=== PATIENT | female | born 1985 | race American Indian/Alaskan Native ===

== ENCOUNTER 2018-06-04 13:45 | Emergency (ER) | payer MEDICAID ==
--- NOTE | 2018-06-04 13:49 | Emergency Department Report ---
Blank Doc - Documentation Documentation: This is a 32-year-old female that presents with vaginal bleeding and pelvic cramping. STated is about 6 weeks . This initial assessment/diagnostic orders/clinical plan/treatment(s) is/are subject to change based on patient's health status, clinical progression and re- assessment by fellow clinical providers in the ED. Further treatment and workup at subsequent clinical providers discretion. Patient/guardians urged not to elope from the ED as their condition may be serious if not clinically assessed and managed. Initial orders include: 1- Patient sent to [facility] for further evaluation and treatment 2- labs 3- UA 4- US OB
[2018-06-04 13:51] VITALS: BP 143/94
[2018-06-04 14:18] LABS: Bilirubin,Urine NEG (Negative); Blood,Urine LG (Negative); Color,Urine Yellow (Yellow); Mucus,Urine FEW /HPF; Urobilinogen,Urine < 2.0 mg/dL (<2.0)
[2018-06-04 14:24] LABS: Basophils % (Auto) 0.4 % (0.0-1.8); Eosinophils # (Auto) 0.1 K/mm3 (0.0-0.4); Eosinophils % (Auto) 1.3 % (0.0-4.3); Hematocrit 30.9 % (30.3-42.9); Hemoglobin 10.3 gm/dl (10.1-14.3); Lymphocytes # (Auto) 2.1 K/mm3 (1.2-5.4); Lymphocytes % (Auto) 25.4 % (13.4-35.0); Mean Corpuscular HGB Conc 34 % (30-34); Mean Corpuscular Volume 93 fl (79-97); Monocytes # (Auto) 0.6 K/mm3 (0.0-0.8); Monocytes % (Auto) 7.1 % (0.0-7.3); Platelet Count 321 K/mm3 (140-440); Red Blood Count 3.33 M/mm3 (3.65-5.03); Red Cell Distribution Width 13.3 % (13.2-15.2)
--- NOTE | 2018-06-04 16:27 | Ultrasound Report ---
PROCEDURE: Transabdominal pelvic ultrasound. TECHNIQUE: Real-time transabdominal sonography in multiple planes of pelvis was performed with image documentation. HISTORY: Pelvic pain with vaginal bleeding. COMPARISONS: None. FINDINGS: Image quality is decreased because the patient's bladder was not fully distended. The uterus measures 8.4 cm x 3.6 cm x 4.5 cm. The myometrium appears uniform. The endometrial echo complex measures 6.5 mm. There is no evidence of an intrauterine gestational sac. Correlation with a quantitative beta hCG value is recommended. Both ovaries appear normal in size. There is no free fluid in the cul-de-sac. IMPRESSION: Normal study. This document is electronically signed by Renaldo Huff MD., June 04 2018 04:25:17 PM ET
--- NOTE | 2018-06-04 16:32 | Ultrasound Report ---
PROCEDURE: Transvaginal pelvic ultrasound. TECHNIQUE: Real-time transvaginal sonography in multiple planes of the pelvis was performed with jannette ge documentation. HISTORY: Pelvic pain with vaginal bleeding. COMPARISONS: None. FINDINGS: The myometrium appears uniform. There are no focal uterine masses. There is some slight thickening of the endometrial echo complex within the cervix. There is a very tiny collection of fluid within the cervix. This is of uncertain significance. The possibility of an aborting gestational sac is possible . Correlation with a quantitative beta hCG value is recommended. Both ovaries appear normal in size. There is normal color flow in both ovaries. There are 2 small complex cysts in the right ovary and on e small complex cyst in the left ovary. There is a tiny amount of free fluid in the cul-de-sac. IMPRESSION: Tiny focal fluid collection within the endocervical canal as described above. This document is electronically signed by Renaldo Huff MD., June 04 2018 04:30:51 PM ET
--- NOTE | 2018-06-04 16:42 | Emergency Department Report ---
ED Female HPI - General Chief complaint: Vaginal Bleeding Stated complaint: 6WKS /BLEEDING CRAMPING Time Seen by Provider: 06/04/18 13:48 Source: patient Mode of arrival: Ambulatory Limitations: No Limitations - History of Present Illness Initial comments: Patient is 32 years old female, 2 para 0. Patient presented to the ER complaining of vaginal bleeding and pelvic pain for the last 3 days after having sex. Patient has care was Dr. Reymundo Arellano. She was stated that she had an ultrasound done and she was told that she is 6 weeks . Patient denied any nausea or vomiting. No chest pain or shortness of breath. MD Complaint: vaginal bleeding, pelvic pain - Related Data Allergies Allergy/AdvReac Type Severity Reaction Status Date / Time sulfamethoxazole Allergy Swelling Verified 06/04/18 13:46 [From Bactrim] trimethoprim [From Bactrim] Allergy Swelling Verified 06/04/18 13:46 ED Review of Systems ROS: Stated complaint: 6WKS /BLEEDING CRAMPING Other details as noted in HPI Comment: All other systems reviewed and negative Constitutional: denies: chills, fever Cardiovascular: denies: chest pain, palpitations Gastrointestinal: abdominal pain. denies: nausea, vomiting Neurological: denies: headache, weakness ED Past Medical Hx - Past Medical History Previous Medical History?: No - Surgical History Past Surgical History?: No - Social History Smoking Status: Never Smoker Substance Use Type: None ED Physical Exam - General Limitations: No Limitations General appearance: alert, in no apparent distress - Head Head exam: Present: atraumatic, normocephalic, normal inspection - Eye Eye exam: Present: normal appearance - ENT ENT exam: Present: normal exam, normal orophraynx, mucous membranes moist - Neck Neck exam: Present: normal inspection, full ROM. Absent: tenderness, meningismus, lymphadenopathy, thyromegaly - Respiratory Respiratory exam: Present: normal lung sounds bilaterally - Cardiovascular Cardiovascular Exam: Present: regular rate, normal rhythm, normal heart sounds - GI/Abdominal GI/Abdominal exam: Present: soft, normal bowel sounds. Absent: distended, tenderness, guarding, rebound, rigid - Extremities Exam Extremities exam: Present: normal inspection, full ROM - Back Exam Back exam: Present: normal inspection, full ROM. Absent: tenderness, CVA tenderness (R), CVA tenderness (L) - Neurological Exam Neurological exam: Present: alert, oriented X3, CN II-XII intact, normal gait, reflexes normal - Skin Skin exam: Present: warm, intact, normal color ED Course Vital Signs 06/04/18 13:49 Temperature 99.3 F Pulse Rate 84 Respiratory 18 Rate Blood Pressure 143/94 O2 Sat by Pulse 98 Oximetry ED Medical Decision Making - Lab Data Result diagrams: 06/04/18 13:57 - Radiology Data Radiology results: report reviewed Referring Physician: JULIUS BUI Patient Name: ALYSSA HILLS Date of : 1985 Sex: Female Report Date: 2018-06-04 Report Status: Finalized Findings [facility] [address] [place] [address] Ultrasound Report Signed Patient: ALYSSA HILLS MR#: [id number] : 1985 Acct:[id number] Age/Sex: 32 / F ADM Date: 06/04/18 Loc: ED Attending Dr: Ordering Physician: JULIUS BUI NP Date of Service: 06/04/18 Procedure(s): US OB transvaginal Accession Number(s): [id number] cc: JULIUS BUI NP PROCEDURE: Transvaginal pelvic ultrasound. TECHNIQUE: Real-time transvaginal sonography in multiple planes of the pelvis was performed with image documentation. HISTORY: Pelvic pain with vaginal bleeding. COMPARISONS: None. FINDINGS: The myometrium appears uniform. There are no focal uterine masses. There is some slight thickening of the endometrial echo complex within the cervix. There is a very tiny collection of fluid within the cervix. This is of uncertain significance. The possibility of an aborting gestational sac is possible. Correlation with a quantitative beta hCG value is recommended. Both ovaries appear normal in size. There is normal color flow in both ovaries. There are 2 small complex cysts in the right ovary and one small complex cyst in the left ovary. There is a tiny amount of free fluid in the cul-de-sac. IMPRESSION: Tiny focal fluid collection within the endocervical canal as described above. This document is electronically signed by Renaldo Damian MD., June 04 2018 04:30:51 PM ET Transcribed By: MRM Dictated By: RENALDO DAMIAN MD Electronically Authenticated By: RENALDO DAMIAN MD Signed Date/Time: 06/04/18 1632 DD/ 1604 TD/TT: 06/04/18 1604 - Medical Decision Making I advised the patient to follow-up with Dr. Reymundo Arellano in the next 2-3 days for a repeat BETA hCG and possible ultrasound. Patient stated that she has an appointment with Dr. Reymundo Arellano on . I also advised her to return to the ER if symptoms have not improved. Critical care attestation.: If time is entered above; I have spent that time in minutes in the direct care of this critically ill patient, excluding procedure time. ED Disposition Clinical Impression: Abdominal pain affecting , Miscarriage Disposition: - TO HOME OR SELFCARE Is pt being admited?: No Condition: Stable Instructions: Spontaneous Miscarriage (ED) Referrals: REYMUNDO ARELLANO MD [Primary Care Provider] - 3-5 Days
== END 2018-06-04 16:48 | disposition home or self-care (01) ==
LOC: ED 13:45
DX: O20.0 Threatened abortion (principal); Z3A.01 Less than 8 weeks gestation of pregnancy; Z88.2 Allergy status to sulfonamides
CPT/HCPCS: 36415; 76801; 76817; 81001; 84702; 85025; 86850; 86900; 86901

== ENCOUNTER 2020-07-08 10:59 | Emergency (ER) | payer MEDICAID ==
[2020-07-08 13:36] VITALS: BP 193/125
--- NOTE | 2020-07-08 13:45 | Event Note ---
ED Screening Note Date of service: 07/08/20 Time: 13:43 ED Screening Note: 34-year-old female patient with history of tubal ligation presents to emergency department with complaints of painful vaginal bleeding for 1 month. Patient states she has been changing her pad/tampon every hour for the last 30 days. No history of menstrual problems. She has been unable to see her bacteriologist dairy for this issue. She is not anticoagulated. Denies fever, nausea, vomiting, diarrhea, constipation, rectal bleeding, hemoptysis, abnormal bruising. Tachycardic and hypertensive in triage. General: Awake, appropriately interactive, no acute distress. Neck: Supple. Full range of motion intact. Cardiovascular: Tachycardic. Normal peripheral perfusion. Pulmonary: No respiratory distress. Patient is speaking normally without use of accessory muscles. Skin: No apparent rashes or lesions. Abdomen: Soft, nondistended. Neurological: No facial asymmetry. Speech is clear. Follows commands. Patient is alert and oriented. Musculoskeletal: Moves all four extremities spontaneously with normal range of motion. Psych: Cooperative. Appropriate mood and affect. I have greeted and performed a focused rapid initial assessment of this patient. A comprehensive ED assessment and evaluation of the patient, analysis of all test results, and completion of the medical decision-making process will be conducted by additional ED providers. This initial assessment/diagnostic orders/clinical plan/treatment(s) is/are subject to change based on patients health status, clinical progression and re-assessment. Further treatment and workup at subsequent clinical provider's discretion. Patient/guardian urged not to elope from the ED as their condition may be serious if not clinically assessed and managed.
[2020-07-08 14:49] LABS: Basophils # (Auto) 0.1 K/mm3 (0.0-0.1); Basophils % (Auto) 1.3 % (0.0-1.8); Eosinophils % (Auto) 0.3 % (0.0-4.3); Hematocrit 38.8 % (30.3-42.9); Hemoglobin 12.4 gm/dl (10.1-14.3); Lymphocytes % (Auto) 28.6 % (13.4-35.0); Mean Corpuscular HGB Conc 32 % (30-34); Mean Corpuscular Volume 85 fl (79-97); Monocytes # (Auto) 0.4 K/mm3 (0.0-0.8); Monocytes % (Auto) 5.8 % (0.0-7.3); Platelet Count 281 K/mm3 (140-440); Red Blood Count 4.55 M/mm3 (3.65-5.03); Red Cell Distribution Width 17.4 % (13.2-15.2)
[2020-07-08 15:01] LABS: INR 0.94 (0.87-1.13); Partial Thromboplastin Time 26.8 Sec. (24.2-36.6)
[2020-07-08 15:27] LABS: Alanine Aminotransferase 19 units/L (7-56); Blood Urea Nitrogen 7 mg/dL (7-17); Calcium 9.4 mg/dL (8.4-10.2); Hemolysis Index 13
[2020-07-08 15:39] LABS: BUN/Creatinine Ratio 10
== END 2020-07-08 22:00 | disposition left against medical advice (07) ==
LOC: ED 10:59
DX: N93.9 Abnormal uterine and vaginal bleeding, unspecified (principal); Z53.21 Procedure and treatment not carried out due to patient leaving prior to being seen by health care provider
CPT/HCPCS: 36415; 80053; 83735; 84702; 85025; 85610; 85730; 86850; 86900; 86901